=== PATIENT | female | born 1950 | race African-American/Black ===

== ENCOUNTER 2016-11-10 02:33 | Emergency (ER) | payer OTHER ==
[~2016-11-10] VITALS: Ht 167.6 cm; Wt 79.0 kg
[2016-11-10] MEDS ORDERED: MORPHINE SULFATE 4 MG/ML CPJ (NOT FOR IM USE) IV STA (03:33)
[2016-11-10] MEDS ORDERED: ONDANSETRON HCL 4MG/2ML VIAL IV STA (03:33)
[2016-11-10 04:55] VITALS: BP 149/88
[2016-11-10 04:58] LABS: CHLORIDE 112 mEq/L (98-107)
[2016-11-10 05:01] LABS: BASOPHILS % 0.6 % (0.0-2.0); EOSINOPHILS % 0.1 % (0.0-5.0); HEMATOCRIT. 40.8 % (36.0-48.0); HEMOGLOBIN. 13.7 g/dL (12.0-16.0); LYMPHOCYTES % 11.4 % (20.0-50.0); MEAN CORPUSCULAR HEMOGLOBIN 26.8 pg (28.0-32.0); MEAN CORPUSCULAR VOLUME 79.9 fL (81.0-99.0); MEAN PLATELET VOLUME 8.4 fl (7.4-10.4); MONOCYTES % 3.7 % (2.0-8.0); NEUTROPHILS % 84.2 % (40.0-76.0); PLATELET 315 x1000/uL (130-400); RED BLOOD CELL COUNT 5.11 mill/uL (4.2-5.4); RED CELL DISTRIBUTION WIDTH 15.3 % (11.6-14.6)
[2016-11-10 05:07] LABS: CARBON DIOXIDE 28 mEq/L (21-32)
== END 2016-11-10 06:33 | disposition home or self-care (01) ==
LOC: ER 02:33
DX: M79.604 Pain in right leg (principal); R11.2 Nausea with vomiting, unspecified
CPT/HCPCS: 36415; 72100; 80053; 85025; 93971; 96374; 96375; 99285; J2270; J2405; Z7610